=== PATIENT | male | born 1990 | race African-American/Black ===

== ENCOUNTER 2017-10-26 22:57 | Emergency (ER) | payer SELFPAY | END 2017-10-27 01:09 | disposition left against medical advice (07) | LOC: M ED 22:57 | DX: Z53.21 Procedure and treatment not carried out due to patient leaving prior to being seen by health care provider (principal) ==

== ENCOUNTER 2017-11-10 12:05 | Outpatient (RCR) | payer SELFPAY, MEDICAID | END 2017-12-10 | LOC: M OUTALCOH 11-23 15:00 | DX: F12.20 Cannabis dependence, uncomplicated (principal); F17.200 Nicotine dependence, unspecified, uncomplicated ==

== ENCOUNTER 2017-12-14 16:45 | Outpatient (RCR) | payer MEDICAID, OTHER, SELFPAY | END 2018-01-09 | LOC: M OUTALCOH 12-16 13:00 | DX: F12.20 Cannabis dependence, uncomplicated (principal); F17.200 Nicotine dependence, unspecified, uncomplicated | CPT/HCPCS: 90834 ==

== ENCOUNTER 2018-01-11 15:00 | Outpatient (RCR) | payer OTHER | END 2018-02-09 | LOC: M OUTALCOH 15:00 | DX: F12.20 Cannabis dependence, uncomplicated (principal); F17.200 Nicotine dependence, unspecified, uncomplicated ==

== ENCOUNTER 2018-02-10 13:03 | Outpatient (RCR) | payer OTHER | END 2018-03-11 | LOC: M OUTALCOH 02-15 15:00 | DX: F12.20 Cannabis dependence, uncomplicated (principal); F17.200 Nicotine dependence, unspecified, uncomplicated | CPT/HCPCS: 90834 ==

== ENCOUNTER 2018-03-14 13:56 | Outpatient (RCR) | payer OTHER | END 2018-04-11 | LOC: M OUTALCOH 13:56 | DX: F12.20 Cannabis dependence, uncomplicated (principal); F17.200 Nicotine dependence, unspecified, uncomplicated ==

== ENCOUNTER 2018-05-27 22:35 | Emergency (ER) | payer MEDICAID, OTHER, SELFPAY ==
[2018-05-27] MEDS ORDERED: ACETAMINOPHEN 325 MG TAB PO (23:00)
[2018-05-27 23:26] LABS: HEMATOCRIT 38.2 % (42.0-52.0); HEMOGLOBIN 12.7 g/dl (13.5-17.5); MEAN CORPUSCULAR HEMOGLOBIN 31.8 pg (27.0-33.0); MEAN CORPUSCULAR HGB CONC 33.2 g/dl (32.0-36.5); MEAN CORPUSCULAR VOLUME 95.7 fl (80.0-96.0); PLATELET COUNT, AUTOMATED 239 10^3/uL (150-450); RED BLOOD COUNT 3.99 10^6/uL (4.30-6.10); RED CELL DISTRIBUTION WIDTH 11.4 % (11.5-14.5); WHITE BLOOD COUNT 10.5 10^3/uL (4.0-10.0)
[2018-05-27] MEDS: ALBUTEROL SULFATE 2.5 MG/0.5 ML INH NEB SOLN NEB (23:55)
[2018-05-27 23:59] LABS: INFLUENZA A AMPLIFICATION NEGATIVE (NEGATIVE); INFLUENZA B AMPLIFICATION NEGATIVE (NEGATIVE); RSV AMPLIFICATION NEGATIVE (NEGATIVE)
== END 2018-05-28 01:17 | disposition home or self-care (01) ==
LOC: M ED 05-28 01:17
DX: B34.9 Viral infection, unspecified (principal); Z87.891 Personal history of nicotine dependence
CPT/HCPCS: 71046

== ENCOUNTER 2018-08-23 12:23 | Emergency (ER) | payer SELFPAY, MEDICAID, OTHER ==
[2018-08-23] MEDS: LIDOCAINE 1% SDV 5 ML VIAL DILUENT (14:44)
[2018-08-23] MEDS: cefTRIAXone SOD 250 MG VIAL (J0696) IM (14:44)
[2018-08-23] MEDS: AZITHROMYCIN 250 MG TAB PO (14:44)
== END 2018-08-23 15:00 | disposition home or self-care (01) ==
LOC: M ED 12:23
DX: Z20.2 Contact with and (suspected) exposure to infections with a predominantly sexual mode of transmission (principal); B02.9 Zoster without complications; Z88.8 Allergy status to other drugs, medicaments and biological substances; F17.210 Nicotine dependence, cigarettes, uncomplicated
CPT/HCPCS: J0696

== ENCOUNTER 2019-01-09 15:42 | Emergency (ER) | payer MEDICAID, SELFPAY ==
[~2019-01-09] VITALS: Ht 180.3 cm; Wt 102.0 kg
[2019-01-09 15:42] VITALS: BP 138/61
[~2019-01-09 15:42] MED LIST: OMEP40CA2 PO; PRED20TA PO; TYLE-43 PO; ZITHTAB PO
[2019-01-09] MEDS ORDERED: TRAM-533 PO (16:17)
[2019-01-09] MEDS ORDERED: PENI500T PO (16:17)
== END 2019-01-09 16:23 | disposition home or self-care (01) ==
LOC: M ED 15:42
DX: K04.7 Periapical abscess without sinus (principal); F17.200 Nicotine dependence, unspecified, uncomplicated; Z88.6 Allergy status to analgesic agent

== ENCOUNTER 2019-05-17 23:15 | Emergency (ER) | payer MEDICAID ==
[~2019-05-17] VITALS: Ht 182.9 cm; Wt 107.3 kg
[~2019-05-17 23:15] MED LIST changes: +PENI500T PO; +TRAM-533 PO
[2019-05-18 00:24] LABS: BASO % 0.4 % (0.0-1.0); EOS % 0.2 % (0.0-3.0); HEMATOCRIT 41.2 % (42.0-52.0); HEMOGLOBIN 13.8 g/dl (13.5-17.5); LYMPH % 24.8 % (24.0-44.0); MEAN CORPUSCULAR HEMOGLOBIN 32.1 pg (27.0-33.0); MEAN CORPUSCULAR HGB CONC 33.5 g/dl (32.0-36.5); MEAN CORPUSCULAR VOLUME 95.8 fl (80.0-96.0); MONO # 0.8 10^3/uL (0.0-0.8); MONO % 10.1 % (0.0-5.0); NEUTROPHILS # 5.2 10^3/uL (1.5-8.5); NEUTROPHILS % 64.4 % (36.0-66.0); PLATELET COUNT, AUTOMATED 259 10^3/uL (150-450); WHITE BLOOD COUNT 8.1 10^3/uL (4.0-10.0)
[2019-05-18 00:33] LABS: BLOOD UREA NITROGEN 13 MG/DL (7-18); CALCIUM LEVEL 9.8 MG/DL (8.5-10.1); CARBON DIOXIDE LEVEL 27 MEQ/L (21-32); CHLORIDE LEVEL 108 MEQ/L (98-107); CK-MB VALUE MASS 3.2 NG/ML (<3.6); CPK CREATINE PHOSPHOKINASE 714 U/L (39-308); CREATININE FOR GFR 1.53 MG/DL (0.70-1.30); GLOMERULAR FILTRATION RATE > 60.0 (>60); GLUCOSE, FASTING 103 MG/DL (70-100); MB/CK RELATIVE INDEX 0.45 (< OR =4); POTASSIUM SERUM 4.2 MEQ/L (3.5-5.1); SODIUM LEVEL 141 MEQ/L (136-145); TROPONIN I < 0.02 NG/ML (< 0.10)
[2019-05-18 03:00] VITALS: BP 115/59
[2019-05-18] MEDS ORDERED: NAPR-837 PO (03:29)
--- NOTE | 2019-05-18 07:20 | ECGEPIP ---
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
--- NOTE | 2019-05-18 07:57 | REP ---
Clinical: Acute chest pain . Comparison: 05/27/2018 . Findings: The mediastinum and cardiac silhouette are stable and within normal limits for portable technique. The lung griffin are clear without acute consolidation, effusion, or pneumothorax. Skeletal structures are intact. Impression: No acute cardiopulmonary process appreciated. Electronically Signed by Oscar Vega MD 05/18/2019 07:48 A
== END 2019-05-18 03:43 | disposition home or self-care (01) ==
LOC: M ED 23:15
DX: R07.89 Other chest pain (principal); Z88.8 Allergy status to other drugs, medicaments and biological substances; F17.210 Nicotine dependence, cigarettes, uncomplicated

== ENCOUNTER 2020-11-07 14:06 | Emergency (ER) | payer OTHER ==
[~2020-11-07 14:06] MED LIST changes: +NAPR-837 PO; -OMEP40CA2 PO; +OMEP40CA97 PO
[2020-11-07] MEDS ORDERED: OMEP-218 PO (14:27)
--- OUTSIDE RECORDS SUMMARY | 2020-11-07 14:32 | CCD ---
Author Author [facility] Organization [facility] Address Unknown Phone Unavailable Care Team Providers Care Delivery Professional Name Role Phone DENNIS, L MAHSA INNER DIAMETER GRINDER TOOL Unavailable Unavailable DENNIS, L MAHSA INNER DIAMETER GRINDER TOOL Unavailable Unavailable DENNIS, L MAHSA INNER DIAMETER GRINDER TOOL Unavailable Unavailable DENNIS, L MAHSA INNER DIAMETER GRINDER TOOL Unavailable Unavailable DENNIS, L MAHSA INNER DIAMETER GRINDER TOOL Unavailable Unavailable DENNIS, L MAHSA INNER DIAMETER GRINDER TOOL Unavailable Unavailable DENNIS, L MAHSA INNER DIAMETER GRINDER TOOL Unavailable Unavailable DENNIS, L MAHSA INNER DIAMETER GRINDER TOOL Unavailable Unavailable DENNIS, L MAHSA INNER DIAMETER GRINDER TOOL Unavailable Unavailable DENNIS, L MAHSA INNER DIAMETER GRINDER TOOL Unavailable Unavailable DENNIS, L MAHSA INNER DIAMETER GRINDER TOOL Unavailable Unavailable DENNIS, L MAHSA INNER DIAMETER GRINDER TOOL Unavailable Unavailable DENNIS, L MAHSA INNER DIAMETER GRINDER TOOL Unavailable Unavailable DENNIS, L MAHSA INNER DIAMETER GRINDER TOOL Unavailable Unavailable DENNIS, L MAHSA INNER DIAMETER GRINDER TOOL Unavailable Unavailable ALYSA MARTINEZ MD Unavailable Unavailable ALYSA MARTINEZ MD Unavailable Unavailable DENNIS, D MAHSA DO Unavailable Unavailable DENNIS, D MAHSA DO Unavailable Unavailable DENNIS, D MAHSA DO Unavailable Unavailable DENNIS, D MAHSA DO Unavailable Unavailable DENNIS, D MAHSA DO Unavailable Unavailable DENNIS, D MAHSA DO Unavailable Unavailable DENNIS, D MAHSA DO Unavailable Unavailable DENNIS, D MAHSA DO Unavailable Unavailable DENNIS, D MAHSA DO Unavailable Unavailable DENNIS, D MAHSA DO Unavailable Unavailable DENNIS, D MAHSA DO Unavailable Unavailable DENNIS, D MAHSA DO Unavailable Unavailable DENNIS, D MAHSA DO Unavailable Unavailable DENNIS, D MAHSA DO Unavailable Unavailable DENNIS, D MAHSA DO Unavailable Unavailable DENNIS, D MAHSA DO Unavailable Unavailable DENNIS, D MAHSA DO Unavailable Unavailable DENNIS, D MAHSA DO Unavailable Unavailable DENNIS, D MAHSA DO Unavailable Unavailable DENNIS, D MAHSA DO Unavailable Unavailable DENNIS, D MAHSA DO Unavailable Unavailable DENNIS, D MAHSA DO Unavailable Unavailable [facility] Unavailable [phone] [facility] Unavailable [phone] Re-disclosure Warning The records that you are about to access may contain information from federally-assisted alcohol or drug abuse programs. If such information is present, then the following federally mandated warning applies: This information has been disclosed to you from records protected by federal confidentiality rules (42 CFR part 2). The federal rules prohibit you from making any further disclosure of this information unless further disclosure is expressly permitted by the written consent of the person to whom it pertains or as otherwise permitted by 42 CFR part 2. A general authorization for the release of medical or other information is NOT sufficient for this purpose. The Federal rules restrict any use of the information to criminally investigate or prosecute any alcohol or drug abuse patient.The records that you are about to access may contain highly sensitive health information, the redisclosure of which is protected by Article 27-F of the [facility] Public Health law. If you continue you may have access to information: Regarding HIV / AIDS; Provided by facilities licensed or operated by the [facility] Office of Mental Health; or Provided by the [facility] Office for People With Developmental Disabilities. If such information is present, then the following [facility] mandated warning applies: This information has been disclosed to you from confidential records which are protected by state law. State law prohibits you from making any further disclosure of this information without the specific written consent of the person to whom it pertains, or as otherwise permitted by law. Any unauthorized further disclosure in violation of state law may result in a fine or halfway sentence or both. A general authorization for the release of medical or other information is NOT sufficient authorization for further disc losure. Encounters Encounter Providers Location Date Indications Data Source(s ) Outpatient Attender: MAHSA DENNIS NPAttender: MAHSA CHERI MYERS DO ER-RAD 10/26/2019 02:11:00 PM [facility] Emergency Attender: ALYSA MARTINEZ MD ER-ER 06/2020 01:35:00 PM EST - 10/22/2019 03:48:00 PM [facility] Patient discharged. Extended Individual Psychotherapy - 45 min Attender: [facility] 10/12/2019 09:45:00 AM EST - 10/12/2019 09:45:00 AM EST [facility] ([facility]) Attender: [facility] 12:00:00 AM EST [facility] ([facility]) Attender: [facility] 12:00:00 AM EST [facility] ([facility]) Extended Individual Psychotherapy - 45 min Attender: [facility] 09/17/2019 09:45:00 AM EST - 09/17/2019 09:45:00 AM EST [facility] ([facility]) Brief Individual Psychotherapy - 30 min Attender: KENNY GUAJARDO [facility] 09/10/2019 02:00:00 AM EST - 09/10/2019 02:00:00 AM EST [facility] ([facility]) Attender: [facility] 12:00:00 AM EST [facility] ([facility]) Medications Medication Brand Name Start Date Product Form Dose Route Admi nistrative Instructions Pharmacy Instructions Status Indications Reaction Description Data Source(s) 40 mg 11/17/2019 12:00:00 AM EST capsule,delayed release (DR/EC) 30 TAKE ONE CAPSULE BY MOUTH EVERY DAY TAKE ONE CAPSULE BY MOUTH EVERY DAY SOLD: 11/21/2019 [facility] Trazodone Hydrochloride 100 MG Oral Tablet TRAZODONE HCL 11/13/2019 12:00:00 AM EST tablet 30 TAKE ONE TABLET BY MOUTH AT BEDTIME TAKE ONE TABLET BY MOUTH AT BEDTIME SOLD: 11/21/2019 [facility] Insurance Providers Payer name Policy type / Coverage type Policy ID Covered green party ID Covered green party's relationship to merino Policy Merino Plan Information [facility] [id number] SP [id number] MEDICAID PROF FEES [id number] S [id number] MEDICAID [id number] S [id number] MEDICAID PROF FEES [id number] S D [id number] MEDICAID [id number] S [id number] SELF-PAY UNAVAILABLE S UNAVAILA BLE [facility] O [id number] S [id number] MEDICAID M [id number] S [id number] MEDICAID [id number] SP [id number] SELF PAY ONLY [id number] SP [id number] SP [id number] [facility] [id number] SP [id number] SELF PAY ONLY [id number] SP [id number] MEDICAID [id number] SP [id number] SELF PAY ONLY [id number] SP [id number] [facility] [id number] SP [id number] SELF PAY ONLY [id number] SP [id number] [facility] [id number] SP [id number] [facility] O [id number] S [id number] [facility] [id number] SP [id number] SELF PAY UNAVAILABLE SP UNAVAILA BLE Problems, Conditions, and Diagnoses Code Display Name Description Problem Type Effective Dates Data Source(s) F12.20 Cannabis dependence, uncomplicated Cannabis Use Disorder, Moderate Condition 10/12/2019 12:00:00 AM EST [facility] ([facility]) Z13.83 Encounter for screening for respiratory disorder NEC ENCOUNTER FOR SCREENING FOR RESPIRATORY DISORDER NEC Diagnosis 10/26/2019 02:11:00 P [facility] Z87.891 Personal history of nicotine dependence PERSONAL HISTORY OF NICOTINE DEPENDENCE Diagnosis [facility] Head[facility] HEADACHE Diagnosis 10/22/2019 01:35:00 PM [facility] R05 Cough COUGH Diagnosis 10/22/2019 01:35:00 PM [facility] J10.1 Influenza due to other ident ified influenza virus with other respiratory manifestations FLU DUE TO OTH IDENT INFLUENZA VIRUS W OTH RESP [facility]IFE ST Diagnosis 10/22/2019 01:35:00 PM [facility] Surgeries/Procedures Procedure Description Date Indications Data Source(s) Extended Individual Psychotherapy - 45 min 10/12/2019 12:00:00 AM EST - 10/12/2019 12:00:00 AM EST [facility] ([facility]) Extended Individual Psychotherapy - 45 min 0 12:00:00 AM EST [facility] ([facility]) Extended Individual Psychotherapy - 45 min 09/18/2019 12:00:00 AM EST - 09/18/2019 12:00:00 AM EST [facility] ([facility]) Extended Individual Psychotherapy - 45 min 0 12:00:00 AM EST [facility] ([facility]) Brief Individual Psychotherapy - 30 min 09/10/2019 12:00:00 AM EST - 09/10/2019 12:00:00 AM EST [facility] ([facility]) Brief Individual Psychotherapy - 30 min 09/10/2019 12: 00:00 AM EST [facility] ([facility]) Results ID Date Data Source [id number] 10/26/2019 02:40:00 PM EST [facility] Exam Number: [id number] EXAMINATIO N: 10/26/2019 14:15 ESTCHEST, TWO VIEWSHISTORY: PneumoniaTECHNIQUE: PA and lateral radiographs of the chestCOMPARISON: None.FINDINGS:No evidence of focal consolidation, pneumothorax or large pleuraleffusion. Lungs are clear. Mediastinal structures are unremarkable. Noaggressive osseous lesions.IMPRESSION:No focal consolidation.Electronically signed in PS360 by: Effie Pozo M.D. 10/26/201914:33 EST Reported By: Matthew POZO M.D. Signed By: Erica POZO M.D. Name Value Range Interpretation Code Description Data Helga rce(s) Supporting Document(s) ID Date Data Source [id number] 10/22/2019 02:28:00 PM EST [facility] Name Value Range Interpretation Code Description Data Helga rce(s) Supporting Document(s) INFLUENZA A Negative Negative N [facility] Test Methodology: Isothermal Nucleic Aci d Amplification INFLUENZA B Positive Negative [facility] Test Methodology: Isothermal Nucleic Aci d Amplification ID Date Data Source [id number] 10/22/2019 03:48:00 PM EST [facility] Physician DocumentationClaxerinn-Justus Brian edical CenterName: Lucila GrantAge: 28 yrsSex: MaleDOB: 1990MRN: [id number] Date: 10/22/2019Time: 13:35Account#: [id number] Fast [id number] MD: NONE, - Per PatientED Physician Kaur Martinezisposition Summary:10/22/19 14:39Discharge OrderedLocation: Home Self Care mkProblem: new mkSymptoms: have improved mkCondition: Stable mkDiagnosis- Influenza due to other identified influenza virus with other mkrespiratory manifestationsFollowup: mk- With: Private Physician- When: 1 week- Reason: Recheck today's complaints, Continuance of careFollowup: mk- With: Emergency Department- When: As needed- Reason: Worsening of condition, Change in ConditionDischarge Instructions:- Discharge Summary Sheet mk- INFLUENZA (Adult) mkForms:- Medication Reconciliation mk- Medication Reconciliation Form - 2nd Copy mkPrescriptions:- Tamiflu 75 mg Oral capsule- take 1 capsule by ORAL route 2 times per day for 5 days; 10 mkcapsule; Refills: 0, Product Selection PermittedDisposition:10/1018:01 Attestation: I was available for consultation throughout this sepatient's ED visit.HPI:13:58 This 28 yrs old Male presents to ER via Private mkVehicle with complaints of Cough, Flu Symptoms.13:58 The patient or guardian reports cough, described as mild. Severity of mksymptoms: At their worst the symptoms were mild. Modifying factors:The symptoms are alleviated by nothing, the symptoms are aggravatedby nothing. Associated signs and symptoms: Pertinent negatives: chestpain, diarrhea, ear ache, fever, nausea, rhinorrhea, sore throat,vomiting. The patient has not experienced similar symptoms in thepast. The patient has not recently seen a physician. [facility] and states sincelast night he has had a cough and headache. .Historical:- Allergies: Ibuprofen;- Home Meds:1. Atarax 25 mg Oral tab 1 tab 4 times per day2. clonidine HCl 0.1 mg Oral tab 1 tab 3 times per day3. multivitamin oral tab daily4. magnesium oxide 400 mg magnesium Oral tab daily5. Vitamin D3 2,000 unit oral tab daily6. melatonin 3 mg Oral cap daily- PMHx: Gastric Ulcers;- PSHx: None;- Immunization history: Flu vaccine is not up to date.- Family history: Reviewed and not pertinent, No immediate familymembers are acutely ill.- Social history: Smoking status: Patient states former smoker oftobacco. ETOH status Denies use of ETOH.- Advance Directives:: None.- Hospitalizations: : No recent hospitalization is reported.ROS:14:00 Constitutional: Alert, orie ntated, conversing appropriately. Eyes: mkNegative for blurriness, tearing, itching, and acute vison loss. ENT:Negatve for injury, pain and discharge Neck: Negative for injury,pain, and swelling, Cardiovascular: Negative for chest pain,palpitations, JVD, edema, murmur. Abdomen/GI: Negative for abdominalpain, nausea, vomiting, diarrhea, and constipation, Back: Negativefor injury and pain, : Negative for injury, bleeding, discharge,and swelling, MS/Extremity: Negative for muscle atrophy, weakness;joint range of motion, instability, redness, swelling, tenderness;spine deviation; gait. Skin: Negative for skin, hair, nail changes;itching; rashes; sores; lumps; moles. Respiratory: Positive forcough, with no reported sputum, Negative for dyspnea on exertion,hemoptysis, orthopnea, pleurisy, shortness of breath, sputumproduction, wheezing. Neuro: Positive for headache, Negative foraltered mental status, dizziness, gait disturbance, hearing loss,loss of consciousness, numbness, seizure activity, sp eech changes,syncope, near syncope, tingling, tinnitus, tremor, visual changes,weakness.Exam:14:00 Constitutional: This is a well developed, well nourished patient who mkis awake, alert, and in no acute distress. Head/Face: Normocephalic,atraumatic. Eyes: Pupils equal round and reactive to light,extra- ocular motions intact. Lids and lashes normal. Conjunctivaand sclera are non- icteric and not injected. Cornea within normallimits. Periorbital areas with no swelling, redness, or edema. ENT:Nares patent. No nasal discharge, no septal abnormalities noted.Tympanic membranes are normal and external auditory canals are clear.Oropharynx with no redness, swelling, or masses, exudates, orevidence of obstruction, uvula midline. Mucous membranes moist.Neck: Trachea midline, no thyromegaly or masses palpated, and nocervical lymphadenopathy. Supple, full range of motion withoutnuchal rigidity, or vertebral point tenderness. No Meningismus.Chest/axilla: Normal chest wall appearance and motion. Nonte nderwith no deformity. No lesions are appreciated. Cardiovascular:Regular rate and rhythm with a normal S1 adn S2. No gallops, murmurs,or rubs. Normal PMI, no JVD. No pulse deficits.14:00 Abdomen/GI: Soft, non-tender, with normal bowel sounds. Nodistension or tympany. No guarding or rebound. No evidence oftenderness throughout. Back: No spinal tenderness. Nocostovertebral tenderness. Full range of motion. Skin: Warm, drywith normal turgor. Normal color with no rashes, no lesions, and noevidence of cellulitis. MS/ Extremity: Pulses equal, no cyanosis.Neurovascular intact. Full, normal range of motion. Neuro: Awakeand alert, GCS 15, oriented to person, place, time, and situation.Cranial nerves II-XII grossly intact. Motor strength 5/5 in allextremities. Sensory grossly intact. Cerebellar exam normal.Normal gait.14:00 Respiratory: the patient does not display signs of respiratorydistress, Respirations: normal, no acute changes, Breath sounds: arenormal, clear throughout, no bronchial sounds, no decreased breathsounds, no rales, rhonchi, no stridor, no wheezing.17:46 Neuro: Orientation: is normal, to person, place, time & situation. mkVital Signs:13:42 BP 118 / 78; Pulse 74; Resp 15; Temp 98.2(O); Pulse Ox 99% on R/A; [id number] 98.6 kg (R); Pain 10/10;15:14 BP 118 / 78; Pulse 74; Resp 15; Temp 98.2(O); Pulse Ox 99% on R/A; sd2MDM:13:47 Patient medically screened. mk14:39 Data reviewed: vital signs, nurses notes, lab test result(s). 3:54 Order name: Influenza A B Profile; Complete Time: 14:42 mk4:43 Interpretation: Abnormal: INFLUENZA B Positive. mkDispensed Medications:15:12 Drug: Acetaminophen 650 mg [acetaminophen 325 mg tablet (2 tabs)] klpRoute: PO;Signatures:Dispatcher [employer] Minna Miles RN RN klpKnight, Mary, FNP-Alysa Tom MD MD seDychtiar, Shayna, RN RN sd2 Name Value Range Interpretation Code Description Data Helga rce(s) Supporting Document(s) ID Date Data Source [id number] 10/22/2019 03:48:00 PM EST [facility] terName: Lucila GrantAge: 28 yrsSex: MaleDOB: 1990MRN: [id number] Date: 10/22/2019Time: 13:35Account#: [id number] Fast [id number] MD: NONE, - Per PatientDiagnosis: Influenza due to other identified influenza virus with otherrespiratory manifestationsPresentation:10/1012:37 Presenting complaint: Patient states: cough, SOB, fever since ii1qeqchclqs morning. Care prior to arrival: Medication(s) given:Tylenol, at 0800. Communicable Disease Screen: Negative for fever>/=100 degrees Fahrenheit. Communicable disease screen is negative. (-)rash or unusual skin lesion (-) travel/contact with traveler (-)respiratory symptoms.13:37 Acuity: Triage 4 sd213:37 Method Of Arrival: Private Vehicle sd213:40 Acuity Assignment: Triage 4 [id number] Assessment:13:41 General: Appears uncomfortable, well nourished, well groomed, [id number] is appropriate for age, cooperative. General: Reports chillsfor fever for feeling ill for. Sepsis Screening: (1)Signs/symptomsinfection No. Pain: Complains of pain in generalized body aches Paincurrently is 8 out of 10 on a pain scale. PSS-3 Now I'm going to askyou some questions that we ask everyone treated here, no matter whatproblem they are here for. It is part of the hospital's policy and ithelps us to make sure we are not missing anything important. Over thepast 2 weeks, have you felt down, depressed, or hopeless? No. Overthe past 2 weeks, have had thoughts of killing yourself? No. In yourlifetime, have you ever attempted to kill yourself? No. Derm: Skin ispink, warm & dry. normal. Neuro: Level of Consciousness is awake,alert, Oriented to person, place, time. Respiratory: Airway is patentRespiratory effort is even, unlabored, Respiratory pattern isregular, symmetrical, Reports shortness of breath. GI: Reportsnausea, vomiting, Denies diarrhea. Musculoskeletal: Circulation,motion, and sensation intact Range of motion intact in allextremities.Historical:- Allergies: Ibuprofen;- Home Meds:1. Atarax 25 mg Oral tab 1 tab 4 times per day2. clonidine HCl 0.1 mg Oral tab 1 tab 3 times per day3. multivitamin oral tab daily4. magnesium oxide 400 mg magnesium Oral tab daily5. Vitamin D3 2,000 unit oral tab daily6. melatonin 3 mg Oral cap daily- PMHx: Gastric Ulcers;- PSHx: None;- Immunization history: Flu vaccine is not up to date.- Family history: Reviewed and not pertinent, No immediate familymembers are acutely ill.- Social history: Smoking status: Patient states former smoker oftobacco. ETOH status Denies use of ETOH.- Advance Directives:: None.- Hospitalizations: : No recent hospitalization is reported.Screenin:11 Abuse screen: Denies threats or abuse. Nutritional screening: No [id number] noted. Offer of HIV testing: patient was previously offeredscreening. Fall Risk None identified.Assessment:14:10 Reassessment: see triage assessment by this RN. [id number] Signs:13:42 BP 118 / 78; Pulse 74; Resp 15; Temp 98.2(O); Pulse Ox 99% on R/A; [id number] 98.6 kg (R); Pain 10/10;15:14 BP 118 / 78; Pulse 74; Resp 15; Temp 98.2(O); Pulse Ox 99% on R/A; sd2ED Course :13:35 Patient arrived in ED. sd213:35 NONE, - Per Patient is Private Physician. sd213:40 Triage completed. sd213:46 Vigrie Lezama FNP-C is [facility]. mk13:47 Alysa Martinez MD is Attending Physician. mk14:07 Joan Gallagher RN is Primary Nurse. sd214:07 Nasal Swab Collected by Nurse. sd214:11 Patient has correct armband on for positive identification. Placed in ya0ooky. Bed in low position. Side rails up X 1. Verbal reassurancegiven. Pillow given.15:12 Patient requests pain medication. for headache. klp15:14 No Physician assisted procedures completed. [id number] Medications:15:12 Drug: Acetaminophen 650 mg [acetaminophen 325 mg tablet (2 tabs)] klpRoute: PO;Outcome:14:39 Discharge ordered by . mk15:14 Disposition: Discharged to home ambulatory. sd215:14 Condition: stable.15:14 Discharge instructions given to patient, Instructed on dischargeinstructions, follow up and referral plans. medication usage,Prescriptions given X 1.15:14 Discharge Assessment: Patient verbalized understanding of dispositioninstructions. Patient has no functional deficits.15:48 Patient left the ED. klpSignatures:Minna Ordoñez RN RN klpKnight, Mary, FNP-C FNP-Joan Lemons RN RN sd2 Name Value Range Interpretation Code Description Data Helga rce(s) Supporting Document(s) Procedure Social History Code Duration Value Status Description Data Source(s ) Smoking 10/12/2019 12:00:00 AM EST Unknown if ever smoked comp leted Unknown if ever smoked [facility] ([facility]) Smoking 09/18/2019 12:00:00 AM EST Unknown if ever smoked comp leted Unknown if ever smoked [facility] ([facility]) Smoking 09/10/2019 12:00:00 AM EST Unknown if ever smoked comp leted Unknown if ever smoked [facility] ([facility])
--- OUTSIDE RECORDS SUMMARY | 2020-11-07 15:44 | CCD ---
Author Author [facility] Organization [facility] Address Unknown Phone Unavailable Care Team Providers Care Shoder Filler Name Role Phone DENNIS, L MAHSA SALES REPRESENTATIVE WIRE ROPE Unavailable Unavailable DENNIS, L MAHSA SALES REPRESENTATIVE WIRE ROPE Unavailable Unavailable DENNIS, L MAHSA SALES REPRESENTATIVE WIRE ROPE Unavailable Unavailable DENNIS, L MAHSA SALES REPRESENTATIVE WIRE ROPE Unavailable Unavailable DENNIS, L MAHSA SALES REPRESENTATIVE WIRE ROPE Unavailable Unavailable DNENIS, L MAHSA SALES REPRESENTATIVE WIRE ROPE Unavailable Unavailable DENNIS, L MAHSA SALES REPRESENTATIVE WIRE ROPE Unavailable Unavailable DENNIS, L MAHSA SALES REPRESENTATIVE WIRE ROPE Unavailable Unavailable DENNIS, L MAHSA SALES REPRESENTATIVE WIRE ROPE Unavailable Unavailable DENNIS, L MAHSA SALES REPRESENTATIVE WIRE ROPE Unavailable Unavailable DENNIS, L MAHSA SALES REPRESENTATIVE WIRE ROPE Unavailable Unavailable DENNIS, L MAHSA SALES REPRESENTATIVE WIRE ROPE Unavailable Unavailable DENNIS, L MAHSA SALES REPRESENTATIVE WIRE ROPE Unavailable Unavailable DENNIS, L MAHSA SALES REPRESENTATIVE WIRE ROPE Unavailable Unavailable DENNIS, L MAHSA SALES REPRESENTATIVE WIRE ROPE Unavailable Unavailable ALYSA MARTINEZ MD Unavailable Unavailable [...] Unavailable DENNIS, D MAHSA DO Unavailable Unavailable [facility] Unavailable [facility] Unavailable Re-disclosure Warning The records that you are [...] is protected by Article 27-F of the [facility] Public Health law. If you continue you may have access to information: Regarding HIV / AIDS; Provided by facilities licensed or operated by the [facility] Office of Mental Health; or Provided by the [facility] Office for People With Developmental Disabilities. If such information is present, then the following [facility] mandated warning applies: This information has [...] law may result in a fine or retirement sentence or both. A general authorization for the release of medical or other information is NOT sufficient authorization for further disc losure. Encounters Encounter Providers Location Date Indications Data Source(s ) Outpatient Attender: MAHSA DENNIS NPAttender: MAHSA MYERS DO ER-RAD 10/26/2019 02:11:00 PM [facility] Emergency Attender: ALYSA MARTINEZ MD ER-ER 06/2020 01:35:00 PM EST - 10/22/2019 03:48:00 PM [facility] Patient discharged. Extended Individual Psychotherapy - 45 min Attender: [facility] 10/12/2019 09:45:00 AM EST - 10/12/2019 09:45:00 AM EST [facility] ([facility]) Attender: [facility] 12:00:00 AM EST [facility] ([facility]) Attender: [facility] 12:00:00 AM EST [facility] ([facility]) Extended Individual Psychotherapy - 45 min Attender: [facility] 09/17/2019 09:45:00 AM EST - 09/17/2019 09:45:00 AM EST [facility] ([facility]) Brief Individual Psychotherapy - 30 min Attender: KENNY GUAJARDO [facility] 09/10/2019 02:00:00 AM EST - 09/10/2019 02:00:00 AM EST [facility] ([facility]) Attender: [facility] 12:00:00 AM EST [facility] ([facility]) Medications Medication Brand Name Start Date Product Form Dose Route Admi nistrative Instructions Pharmacy Instructions Status Indications Reaction Description Data Source(s) 40 mg 11/17/2019 12:00:00 AM EST capsule,delayed release (DR/EC) 30 TAKE ONE CAPSULE BY MOUTH EVERY DAY TAKE ONE CAPSULE BY MOUTH EVERY DAY SOLD: 11/21/2019 [facility] Trazodone Hydrochloride 100 MG Oral Tablet TRAZODONE HCL 11/13/2019 12:00:00 AM EST tablet 30 TAKE ONE TABLET BY MOUTH AT BEDTIME TAKE ONE TABLET BY MOUTH AT BEDTIME SOLD: 11/21/2019 [facility] Insurance Providers Payer name Policy type / Coverage type Policy ID Covered libertarian ID Covered libertarian's relationship to merino Policy Merino Plan Information [facility] [id number] SP [id number] MEDICAID PROF FEES [id number] S [id number] MEDICAID [id number] MEDICAID PROF FEES [id number] S D [id number] MEDICAID [id number] SELF-PAY UNAVAILABLE S UNAVAILA BLE [facility] O [id number] S [id number] MEDICAID M [id number] S [id number] MEDICAID [id number] SP [id number] SELF PAY ONLY [id number] SP [id number] [facility] [id number] SP [id number] [facility] [id number] SP [id number] SELF PAY ONLY [id number] SP [id number] MEDICAID [id number] SP [id number] SELF PAY ONLY [id number] SP [id number] [facility] [id number] SP [id number] SELF PAY ONLY [id number] SP [id number] [facility] [id number] SP [id number] [facility] O [id number] S [id number] [facility] [id number] SP [id number] SELF PAY UNAVAILABLE SP UNAVAILA BLE Problems, Conditions, and Diagnoses Code Display Name Description Problem Type Effective Dates Data Source(s) F12.20 Cannabis dependence, uncomplicated Cannabis Use Disorder, Moderate Condition 10/12/2019 12:00:00 AM EST [facility] ([facility]) Z13.83 Encounter for screening for respiratory disorder NEC ENCOUNTER FOR SCREENING FOR RESPIRATORY DISORDER NEC Diagnosis 10/26/2019 02:11:00 P M [facility] Z87.891 Personal history of nicotine dependence PERSONAL HISTORY OF NICOTINE DEPENDENCE Diagnosis [facility] Headache HEADACHE Diagnosis 10/22/2019 01:35:00 PM [facility] R05 Cough COUGH Diagnosis 10/22/2019 01:35:00 PM [facility] J10.1 Influenza due to other ident ified influenza virus with other respiratory manifestations FLU DUE TO OTH IDENT INFLUENZA VIRUS W OTH RESP MANIFE ST Diagnosis 10/22/2019 01:35:00 PM [facility] Surgeries/Procedures Procedure Description Date Indications Data Source(s) Extended Individual Psychotherapy - 45 min 10/12/2019 12:00:00 AM EST - 10/12/2019 12:00:00 AM EST [facility] ([facility]) Extended Individual Psychotherapy - 45 min 0 12:00:00 AM EST [facility] ([facility]) Extended Individual Psychotherapy - 45 min 09/18/2019 12:00:00 AM EST - 09/18/2019 12:00:00 AM EST [facility] ([facility]) Extended Individual Psychotherapy - 45 min 0 12:00:00 AM EST [facility] ([facility]) Brief Individual Psychotherapy - 30 min 09/10/2019 12:00:00 AM EST - 09/10/2019 12:00:00 AM EST [facility] ([facility]) Brief Individual Psychotherapy - 30 min 09/10/2019 12: 00:00 AM EST [facility] ([facility]) Results ID Date Data Source [id number] 10/26/2019 02:40:00 PM EST [facility] Exam Number: [id number] OF EXAMINATIO N: 10/26/2019 14:15 ESTCHEST, TWO [...] rce(s) Supporting Document(s) ID Date Data Source [id number] 10/22/2019 02:28:00 PM EST [facility] Name Value Range Interpretation Code Description Data Helga rce(s) Supporting Document(s) INFLUENZA A Negative Negative N [facility] Test Methodology: Isothermal Nucleic Aci d Amplification INFLUENZA B Positive Negative Salomon [facility] Test Methodology: Isothermal Nucleic Aci d Amplification ID Date Data Source [id number] 10/22/2019 03:48:00 PM EST [facility] Physician DocumentationClaxton-Justus Torres edical CenterName: Lucila GrantAge: 28 yrsSex: MaleDOB: 1990MRN: [id number] Date: 10/22/2019Time: 13:35Account#: [id number] Fast Mz2Pajyezs MD: NONE, - Per PatientED Physician Kaur [...] recently [facility] a physician. [facility] and states sincelast night [...] Temp 98.2(O); Pulse Ox 99% on R/A; cv8Mqpahe 98.6 kg (R); Pain 10/10;15:14 BP 118 [...] tablet (2 tabs)] klpRoute: PO;Signatures:Dispatcher [employer] Minna Miles, RN RN Virgie Bocanegra, Alysa Lizarraga MD MD seDychtiar, Shayna RN RN sd2 Name Value Range Interpretation Code Description Data Helga rce(s) Supporting Document(s) ID Date Data Source [id number] 10/22/2019 03:48:00 PM EST [facility] Nurse's NotesClGouverneur Health terName: Lucila GrantAge: 28 yrsSex: MaleDOB: 1990MRN: [id number] Date: 10/22/2019Time: 13:35Account#: [id number] Fast Hi9Kupeseh MD: NONE, - Per PatientDiagnosis: Influenza due to other identified influenza virus with otherrespiratory manifestationsPresentation:10/1012:37 Presenting complaint: Patient states: cough, SOB, fever since gp9wcvxvwegz morning. Care prior to arrival: Medication(s) given:Tylenol, at 0800. Communicable Disease Screen: Negative for fever>/=100 degrees Fahrenheit. Communicable disease screen is negative. (-)rash or unusual skin lesion (-) travel/contact with traveler (-)respiratory symptoms.13:37 Acuity: Triage 4 sd213:37 Method Of Arrival: Private Vehicle sd213:40 Acuity Assignment: Triage 4 [id number] Assessment:13:41 General: Appears uncomfortable, well nourished, well groomed, lg8Bqdbxjwh is appropriate for age, cooperative. General: Reports [...] Denies threats or abuse. Nutritional screening: No mv9ybecafdz noted. Offer of HIV testing: patient was previously offeredscreening. Fall Risk None identified.Assessment:14:10 Reassessment: see triage assessment by this RN. bp1Rkfbq Signs:13:42 BP 118 / 78; Pulse 74; Resp 15; Temp 98.2(O); Pulse Ox 99% on R/A; mw1Myvtyf 98.6 kg (R); Pain 10/10;15:14 BP 118 / 78; Pulse 74; Resp 15; Temp 98.2(O); Pulse Ox 99% on R/A; sd2ED Course :13:35 Patient arrived in ED. sd213:35 NONE, - Per Patient is Private Physician. sd213:40 Triage completed. sd213:46 Virgie Lezama FNP-C is [facility] mk13:47 Alysa Martinez MD is Attending Physician. mk14:07 Joan Gallagher RN is Primary Nurse. sd214:07 Nasal Swab Collected by Nurse. sd214:11 Patient has correct armband on for positive identification. Placed in de3hbrz. Bed in low position. Side rails up X 1. Verbal reassurancegiven. Pillow given.15:12 Patient requests pain medication. for headache. klp15:14 No Physician assisted procedures completed. lr3Yxuydgscgite Medications:15:12 Drug: Acetaminophen 650 mg [acetaminophen 325 [...] klpSignatures:Minna Ordoñez RN RN klpKnight, Mary, FNP-C FNP-HermeskDJoan collins RN RN sd2 Name Value Range Interpretation Code Description Data Helga rce(s) Supporting Document(s) Procedure Social History Code Duration Value Status Description Data Source(s ) Smoking 10/12/2019 12:00:00 AM EST Unknown if ever smoked comp leted Unknown if ever smoked [facility] ([facility]) Smoking 09/18/2019 12:00:00 AM EST Unknown if ever smoked comp leted Unknown if ever smoked [facility] ([facility]) Smoking 09/10/2019 12:00:00 AM EST Unknown if ever smoked comp leted Unknown if ever smoked [facility] ([facility])
== END 2020-11-07 17:19 | disposition home or self-care (01) ==
LOC: M ED 14:06
DX: F43.0 Acute stress reaction (principal); B02.9 Zoster without complications; Z79.899 Other long term (current) drug therapy; Z88.8 Allergy status to other drugs, medicaments and biological substances; F17.210 Nicotine dependence, cigarettes, uncomplicated; F12.20 Cannabis dependence, uncomplicated

== ENCOUNTER 2020-11-12 18:14 | Emergency (ER) | payer OTHER ==
[~2020-11-12] VITALS: Ht 182.9 cm; Wt 83.2 kg
[~2020-11-12 18:14] MED LIST changes: +OMEP-218 PO
[2020-11-12] MEDS ORDERED: ASPIRIN 81 MG CHEW TABLET PO ONE (18:35)
[2020-11-12 18:44] VITALS: BP 138/79
[2020-11-12 19:00] LABS: BASO % 0.4 % (0.0-1.0); EOS # 0.2 10^3/uL (0.0-0.5); EOS % 3.1 % (0.0-3.0); HEMATOCRIT 44.9 % (42.0-52.0); HEMOGLOBIN 14.7 g/dl (13.5-17.5); LYMPH # 2.7 10^3/uL (1.5-5.0); LYMPH % 40.4 % (24.0-44.0); MEAN CORPUSCULAR HEMOGLOBIN 31.6 pg (27.0-33.0); MEAN CORPUSCULAR HGB CONC 32.7 g/dl (32.0-36.5); MEAN CORPUSCULAR VOLUME 96.6 fl (80.0-96.0); MONO # 0.6 10^3/uL (0.0-0.8); MONO % 9.6 % (2.0-8.0); NEUTROPHILS # 3.1 10^3/uL (1.5-8.5); NEUTROPHILS % 46.4 % (36.0-66.0); PLATELET COUNT, AUTOMATED 263 10^3/uL (150-450); RED BLOOD COUNT 4.65 10^6/uL (4.30-6.10); WHITE BLOOD COUNT 6.7 10^3/uL (4.0-10.0)
--- NOTE | 2020-11-12 19:19 | REP ---
INDICATION: CHEST PAIN. COMPARISON: 05/18/2019. TECHNIQUE: SINGLE PORTABLE AP VIEW OF THE CHEST WAS PERFORMED. FINDINGS: THERE IS NO ACUTE INFILTRATE OR PULMONARY EDEMA. LUNGS ARE CLEAR. HEART IS NOT SIGNIFICANTLY ENLARGED. MEDIASTINAL SILHOUETTE IS UNREMARKABLE. THE VISUALIZED OSSEOUS STRUCTURES ARE INTACT. IMPRESSION: NO ACUTE PULMONARY DISEASE. <Electronically signed by Alvarez Stevens > 11/12/20 [id number]
[2020-11-12 19:28] LABS: ALBUMIN 3.9 GM/DL (3.2-5.2); ALT/SGPT 24 U/L (12-78); BILIRUBIN,DIRECT < 0.1 MG/DL (0.0-0.2); BILIRUBIN,TOTAL 0.3 MG/DL (0.2-1.0); BLOOD UREA NITROGEN 14 MG/DL (7-18); CARBON DIOXIDE LEVEL 27 MEQ/L (21-32); CHLORIDE LEVEL 109 MEQ/L (98-107); CK-MB VALUE MASS 1.1 NG/ML (<3.6); CPK CREATINE PHOSPHOKINASE 231 U/L (39-308); GLOMERULAR FILTRATION RATE > 60.0 (>60); GLUCOSE, FASTING 89 MG/DL (70-100); LIPASE 117 U/L (73-393); MB/CK RELATIVE INDEX 0.48 (< OR =4); NT-PRO BNP 31 PG/ML (<125); POTASSIUM SERUM 4.1 MEQ/L (3.5-5.1); SODIUM LEVEL 141 MEQ/L (136-145); TOTAL PROTEIN 7.6 GM/DL (6.4-8.2); TROPONIN I < 0.02 NG/ML (< 0.10)
[2020-11-12 22:32] LABS: CK-MB VALUE MASS 1.1 NG/ML (<3.6); CPK CREATINE PHOSPHOKINASE 191 U/L (39-308); MB/CK RELATIVE INDEX 0.58 (< OR =4); TROPONIN I < 0.02 NG/ML (< 0.10)
--- NOTE | 2020-11-14 07:51 | ECGEPIP ---
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
--- NOTE | 2020-11-14 07:54 | ECGEPIP ---
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
== END 2020-11-12 23:30 | disposition home or self-care (01) ==
LOC: M ED 18:14 → EDBD 18:14 → M ED 23:30
DX: F43.0 Acute stress reaction (principal); Z79.899 Other long term (current) drug therapy; Z88.8 Allergy status to other drugs, medicaments and biological substances

== ENCOUNTER 2021-05-02 18:56 | Emergency (ER) | payer OTHER ==
[~2021-05-02] VITALS: Ht 182.9 cm; Wt 100.0 kg
[~2021-05-02 18:56] MED LIST changes: +OMEP40CA4 PO; -OMEP40CA97 PO
[2021-05-02 18:57] VITALS: BP 130/68
[2021-05-02] MEDS ORDERED: ACETAMINOPHEN 325 MG TAB PO ONE (19:50)
[2021-05-02] MEDS ORDERED: AUGMENTIN 875 MG TAB PO ONE (19:50)
[2021-05-02] MEDS ORDERED: AUGM875T28 PO (19:58)
== END 2021-05-02 20:08 | disposition home or self-care (01) ==
LOC: M ED 18:56
DX: K04.7 Periapical abscess without sinus (principal); Z88.8 Allergy status to other drugs, medicaments and biological substances; F12.20 Cannabis dependence, uncomplicated

== ENCOUNTER 2024-07-24 10:00 | Emergency (ER) | payer OTHER ==
[~2024-07-24] VITALS: Ht 180.3 cm; Wt 108.9 kg
[~2024-07-24 10:00] MED LIST changes: +AUGM875T28 PO; +OMEP-173 PO; -OMEP-218 PO
[2024-07-24 10:43] LABS: HEMOGLOBIN 14.1 g/dl (13.5-17.5); MEAN CORPUSCULAR HEMOGLOBIN 31.9 pg (27.0-33.0); MEAN CORPUSCULAR HGB CONC 32.8 g/dl (32.0-36.5); MEAN CORPUSCULAR VOLUME 97.3 fl (80.0-96.0); PLATELET COUNT, AUTOMATED 332 10^3/uL (150-450); RED BLOOD COUNT 4.42 10^6/uL (4.30-6.10); WHITE BLOOD COUNT 8.5 10^3/uL (4.0-10.0)
[2024-07-24 11:21] LABS: BLOOD UREA NITROGEN 12 MG/DL (9-23); CALCIUM LEVEL 9.8 MG/DL (8.5-10.1); CARBON DIOXIDE LEVEL 28 MMOL/L (20-31); CHLORIDE LEVEL 104 MMOL/L (98-107); CREATININE FOR GFR 1.26 MG/DL (0.70-1.30); GLOMERULAR FILTRATION RATE > 60.0 (>60); GLUCOSE, FASTING 121 MG/DL (60-100); POTASSIUM SERUM 4.4 MMOL/L (3.5-5.1); SODIUM LEVEL 138 MMOL/L (136-145)
[2024-07-24 12:08] LABS: AMPHETAMINES LEVEL URINE NEGATIVE (NEGATIVE); BARBITURATES URINE NEGATIVE (NEGATIVE); BENZODIAZEPINES URINE NEGATIVE (NEGATIVE); CANNABINOIDS URINE NEGATIVE (NEGATIVE); COCAINE METABOLITE URINE NEGATIVE (NEGATIVE); METHADONE URINE NEGATIVE (NEGATIVE); OPIATES URINE NEGATIVE (NEGATIVE); PHENCYCLIDINE URINE NEGATIVE (NEGATIVE)
[2024-07-24 12:36] VITALS: BP 130/77; TEMP 98.4; O2SAT 100
== END 2024-07-24 12:35 | disposition home or self-care (01) ==
LOC: M ED 10:00 → EDBD 10:00 → M ED 12:35
DX: R55 Syncope and collapse (principal); F12.10 Cannabis abuse, uncomplicated; Z88.8 Allergy status to other drugs, medicaments and biological substances; Z79.2 Long term (current) use of antibiotics; Z79.899 Other long term (current) drug therapy